=== PATIENT | female | born 1970 | race Caucasian/White ===

== ENCOUNTER 2018-03-13 16:46 | Emergency (ER) | payer OTHER ==
[~2018-03-13] VITALS: Ht 165.1 cm; Wt 70.0 kg
[2018-03-13 16:57] VITALS: BP 155/83; PULSE 74; RESP 16; TEMP 98.2; O2SAT 100
[2018-03-13] MEDS ORDERED: SODIUM CHLOR 0.9% 1000 ML INJ 1,000 ML IV ONE (16:57)
[2018-03-13 16:59] VITALS: O2SAT 100
[2018-03-13] MEDS ORDERED: METOCLOPRAMIDE HCL 10 MG/2 ML VIAL IV PUSH ONE (17:00)
[2018-03-13] MEDS ORDERED: SODIUM CHLORIDE 0.9% FLUSH 10 ML FLUSH IVF PRN (17:00)
[2018-03-13] MEDS ORDERED: diphenhydrAMINE HCL 50 MG/ML VIAL IV PUSH ONE (17:00)
--- NOTE | 2018-03-13 17:03 | PD ---
HPI Chief Complaint: Numbness/Tingling Time Seen by Provider: 16:57 Travel History International Travel<30 days: No Contact w/Intl Traveler<30days: No Traveled to known affect area: No History of Present Illness HPI 47-year-old [place] female patient with no significant past medical issues, had returned from a trip to [place] about 2 weeks ago, at urgent care today and sent to the ER had been seen for several days history of headaches, tingling in the right side of face and in the right hand, dizziness, nausea. Symptoms have been going on for about a week. She denies any fevers, abdominal pains, diarrhea, or any other symptoms. She denies any trouble walking or talking or any numbness or weakness. She denies any previous issues with tingling in the hands and face. She has had history of headaches in the past mostly before her menses. She states the headaches are not unusual. Modifying Factors: None Associated Signs & Symptoms: Right facial paresthesias, headache, dizziness Risk Factors: History of chronic headaches PFSH Past Medical History ?: Not LMP: NOW Social History Tobacco Use: No Allergies-Medications (Allergen,Severity, Reaction): Coded Allergies: No Known Allergies (Unverified , 03/13/18) Reported Meds & Prescriptions Reported Meds & Active Scripts Active Reported [Exudis] Review of Systems Except as stated in HPI: all other systems reviewed are Neg Physical Exam Narrative GENERAL: Well-developed middle-age female patient currently in mild distress. Awake and oriented 3. Ambulatory in the ER without issues. SKIN: Focused skin assessment warm/dry. HEAD: Atraumatic. Normocephalic. EYES: Pupils equal and round. No scleral icterus. No injection or drainage. ENT: No nasal bleeding or discharge. Mucous membranes pink and moist. EARS: Bilateral pinnae and external canals appear within normal limits. Bilateral tympanic membranes without erythema, dullness or perforation. NECK: Trachea midline. No JVD. Supple. CARDIOVASCULAR: Regular rate and rhythm. No murmur appreciated. RESPIRATORY: No accessory muscle use. Clear to auscultation. Breath sounds equal bilaterally. GASTROINTESTINAL: Abdomen soft, non-tender, nondistended. Hepatic and splenic margins not palpable. MUSCULOSKELETAL: No obvious deformities. No clubbing. No cyanosis. No edema. NEUROLOGICAL: Awake and alert. No obvious cranial nerve deficits. Motor grossly within normal limits. Normal speech. No pronator drift. PSYCHIATRIC: Appropriate mood and affect; insight and judgment normal. Data Data Last Documented VS Vital Signs Date Time Temp Pulse Resp B/P (MAP) Pulse Ox O2 Delivery O2 Flow Rate FiO2 03/13/18 18:42 72 16 127/78 (94) 100 Room Air 03/13/18 16:57 98.2 Orders Orders Electrocardiogram (03/13/18 16:57) Ed Urine Pregnancytest Poc (03/13/18 16:57) Complete Blood Count With Diff (03/13/18 16:57) Comprehensive Metabolic Panel (03/13/18 16:57) Urinalysis - C+S If Indicated (03/13/18 16:57) Ct Brain W/O Iv Contrast(Rout) (03/13/18 16:57) Ecg Monitoring (03/13/18 16:57) Iv Access Insert/Monitor (03/13/18 16:57) Oximetry (03/13/18 16:57) Sodium Chloride 0.9% Flush (Ns Flush) (03/13/18 17:00) Sodium Chlor 0.9% 1000 Ml Inj (Ns 1000 M (03/13/18 16:57) Metoclopramide Inj (Reglan Inj) (03/13/18 17:00) Diphenhydramine Inj (Benadryl Inj) (03/13/18 17:00) Ed Discharge Order (03/13/18 18:49) Labs Laboratory Tests Test 03/13/18 17:25 03/13/18 17:30 Urine Color YELLOW Urine Turbidity CLEAR Urine pH 5.5 Urine Specific [place] LESS/EQUAL 1.005 Urine Protein NEG mg/dL Urine Glucose (UA) NEG mg/dL Urine Ketones NEG mg/dL Urine Occult Blood TRACE Urine Nitrite NEG Urine Bilirubin NEG Urine Urobilinogen 0.2 MG/DL Urine Leukocyte Esterase TRACE Urine RBC 0-3 /hpf Urine WBC 0-2 /hpf Urine Squamous Epithelial Cells 0-5 /hpf Microscopic Urinalysis Comment CULT NOT INDICATED White Blood Count 4.9 TH/MM3 Red Blood Count 4.22 MIL/MM3 Hemoglobin 13.1 GM/DL Hematocrit 38.7 % Mean Corpuscular Volume 91.8 FL Mean Corpuscular Hemoglobin 31.1 PG Mean Corpuscular Hemoglobin Concent 33.9 % Red Cell Distribution Width 13.9 % Platelet Count 275 TH/MM3 Mean Platelet Volume 8.5 FL Neutrophils (%) (Auto) 43.8 % Lymphocytes (%) (Auto) 47.8 % Monocytes (%) (Auto) 8.1 % Eosinophils (%) (Auto) 0.1 % Basophils (%) (Auto) 0.2 % Neutrophils # (Auto) 2.1 TH/MM3 Lymphocytes # (Auto) 2.4 TH/MM3 Monocytes # (Auto) 0.4 TH/MM3 Eosinophils # (Auto) 0.0 TH/MM3 Basophils # (Auto) 0.0 TH/MM3 CBC Comment DIFF FINAL Differential Comment Blood Urea Nitrogen 14 MG/DL Creatinine 0.87 MG/DL Random Glucose 91 MG/DL Total Protein 7.8 GM/DL Albumin 3.8 GM/DL Calcium Level 8.9 MG/DL Alkaline Phosphatase 46 U/L Aspartate Amino Transf (AST/SGOT) 13 U/L Alanine Aminotransferase (ALT/SGPT) 21 U/L Total Bilirubin 0.3 MG/DL Sodium Level 139 MEQ/L Potassium Level 3.3 MEQ/L Chloride Level 104 MEQ/L Carbon Dioxide Level 30.6 MEQ/L Anion Gap 4 MEQ/L Estimat Glomerular Filtration Rate 70 ML/MIN [facility] Medical Decision Making Medical Screen Exam Complete: Yes Emergency Medical Condition: Yes Medical Record Reviewed: Yes Interpretation(s) EKG shows NSR, no ST elevation or depression, and no arrhythmias. No significant T-wave inversions. Laboratory Tests Test 03/13/18 17:25 03/13/18 17:30 Urine Leukocyte Esterase TRACE (NEG) Lymphocytes (%) (Auto) 47.8 % (9.0-44.0) Monocytes (%) (Auto) 8.1 % (0.0-8.0) Aspartate Amino Transf (AST/SGOT) 13 U/L (15-37) Potassium Level 3.3 MEQ/L (3.5-5.1) Anion Gap 4 MEQ/L (5-15) Estimat Glomerular Filtration Rate 70 ML/MIN (>89) Last [address] 03/13/18 7287 Signed Impressions: Service Date/Time: February 17:09 - CONCLUSION: Normal examination. Jose Olsen MD Differential Diagnosis Electrolyte abnormalities versus atypical migraine versus acute intracranial processes versus CVA Narrative Course EKG did not show dysrhythmias. She has no focal neurological deficits. No pronator drift. She is answering questions appropriately, no slurred speech. CAT scan did not show any signs of acute intracranial processes. Lab work was fairly unremarkable except for a mild hypokalemia. On reevaluation after patient was given IV fluids, Reglan, Benadryl, at 6:30 PM, she is feeling improved. At this point, patient is doing well and I have discussed close follow-up with primary care physician for this issue and patient states understanding. She is to return for any worsening of symptoms as necessary. The plan has been discussed with her and she states understanding. Diagnosis Primary Impression: Dizziness Additional Instructions: Follow-up with your primary care doctor. Return for any worsening in symptoms or new issues as necessary. Med/Other Pt SpecificInfo: Prescription(s) given Scripts Promethazine (Phenergan) 25 Mg Tablet 25 MG PO Q6H Y for NAUSEA OR VOMITING, #7 TAB 0 Refills Prov: Ruby Carmichael MD 03/13/18 Disposition: 01 DISCHARGE HOME Condition: Stable Ruby Carmichael MD Mar 13, 2018 17:03
[2018-03-13] MEDS ORDERED: [UNRECOGNIZED DRUG - OTHER] (17:12)
--- NOTE | 2018-03-13 17:21 | RADRPT ---
EXAM DATE/TIME: 03/13/2018 17:09 [facility] COMPARISON: No previous studies available for comparison. INDICATIONS : Cephalgia. Dizziness. Right facial and arm tingling. RADIATION DOSE: 52.05 CTDIvol (mGy) MEDICAL HISTORY : None SURGICAL HISTORY : None. ENCOUNTER: Initial ACUITY: 1 day PAIN SCALE: 7/10 LOCATION: cranial TECHNIQUE: Multiple contiguous axial images were obtained of the head. Using automated exposure control and adj ustment of the mA and/or kV according to patient size, radiation dose was kept as low as reasonably a chievable to obtain optimal diagnostic quality images. DICOM format image data is available electro nically for review and comparison. FINDINGS: CEREBRUM: The ventricles are normal for age. No evidence of midline shift, mass lesion, hemorrhage or acute in farction. No extra-axial fluid collections are seen. POSTERIOR FOSSA: The cerebellum and brainstem are intact. The 4th ventricle is midline. The cerebellopontine angle i s unremarkable. EXTRACRANIAL: The visualized portion of the orbits is intact. SKULL: The calvaria is intact. No evidence of skull fracture. CONCLUSION: Normal examination. Jose Olsen MD on March 13, 2018 at 17:18 Board Certified Radiologist. This report was verified electronically.
[2018-03-13 17:43] LABS: AUTOMATED NEUTROPHIL # 2.1 TH/MM3 (1.8-7.7); BASOPHIL % 0.2 % (0.0-2.0); EOSINOPHIL % 0.1 % (0.0-4.0); HEMATOCRIT 38.7 % (35.0-46.0); HEMOGLOBIN 13.1 GM/DL (11.6-15.3); LYMPH % 47.8 % (9.0-44.0); LYMPHOCYTE # 2.4 TH/MM3 (1.0-4.8); MEAN CELL VOLUME 91.8 FL (80.0-100.0); MEAN CORPUSCULAR HEMOGLOBIN 31.1 PG (27.0-34.0); MEAN CORPUSCULAR HGB CONC 33.9 % (32.0-36.0); MEAN PLATELET VOLUME 8.5 FL (7.0-11.0); MONO % 8.1 % (0.0-8.0); MONOCYTE # 0.4 TH/MM3 (0-0.9); NEUT % 43.8 % (16.0-70.0); PLATELET COUNT 275 TH/MM3 (150-450); RED BLOOD COUNT 4.22 MIL/MM3 (4.00-5.30); RED CELL DISTRIBUTION WIDTH 13.9 % (11.6-17.2); WHITE BLOOD COUNT 4.9 TH/MM3 (4.0-11.0)
[2018-03-13 17:56] LABS: BILIRUBIN, URINE NEG (NEG); BLOOD, URINE TRACE (NEG); GLUCOSE,URINE NEG (NEG); KETONE, URINE NEG (NEG); NITRITE,URINE NEG (NEG); PH, URINE 5.5 (5.0-8.5); URINE COLOR YELLOW (YELLW/STRAW); URINE LEUKOCYTE ESTERASE TRACE (NEG)
[2018-03-13 17:56] LABS: CHLORIDE 104 MEQ/L (98-107); SODIUM (NA) 139 MEQ/L (136-145)
[2018-03-13 17:59] LABS: CALCIUM 8.9 MG/DL (8.5-10.1)
[2018-03-13 18:00] LABS: ALBUMIN 3.8 GM/DL (3.4-5.0); BICARBONATE 30.6 MEQ/L (21.0-32.0); BLOOD UREA NITROGEN 14 MG/DL (7-18); GLUCOSE,RANDOM 91 MG/DL (74-106)
[2018-03-13 18:03] LABS: ALT (GPT) 21 U/L (10-53); AST (GOT) 13 U/L (15-37); CREATININE 0.87 MG/DL (0.50-1.00); GLOMERULAR FILTRATION RATE 70 ML/MIN (>89)
[2018-03-13 18:03] LABS: RBC, URINE 0-3 /hpf (0-3); SQUAMOUS EPITHELIAL CELL URINE 0-5 /hpf (0-5); WBC, URINE 0-2 /hpf (0-5)
[2018-03-13 18:05] LABS: TOTAL BILIRUBIN ADULT 0.3 MG/DL (0.2-1.0); TOTAL PROTEIN 7.8 GM/DL (6.4-8.2)
[2018-03-13 18:06] LABS: ALKALINE PHOSPHATASE 46 U/L (45-117)
[2018-03-13 18:42] VITALS: BP 127/78; PULSE 72; RESP 16; O2SAT 100
[2018-03-13] MEDS ORDERED: PROM25TA10 PO (18:54)
--- NOTE | 2018-03-14 13:36 | EKG ---
Date Performed: 03/13/2018 Time Performed: 17:05:53 PTAGE: 47 years EKG: Sinus rhythm NORMAL ECG NO PREVIOUS TRACING DOCTOR: Gil Meredith Interpretating Date/Time 03/14/2018 13:35:01
== END 2018-03-13 19:34 | disposition home or self-care (01) ==
LOC: PHED 16:46
DX: R42 Dizziness and giddiness (principal); E87.6 Hypokalemia; R51 Headache; R11.0 Nausea
CPT/HCPCS: 70450; 80053; 81001; 84703; 85025; 93005; 96361; 96374; 96375; 99285; J1200; J2765; J7030